=== PATIENT | female | born 1980 | race Caucasian/White ===

== ENCOUNTER 2016-11-11 18:56 | Observation (INO) | payer OTHER ==
[2016-11-11] MEDS ORDERED: ACETAMINOPHEN 500 MG TAB PO ONE (19:24)
--- NOTE | 2016-11-11 19:44 | OBPROG ---
OBG Labor Progress Note Assessment/Plan: Assessment:awake alert answering questions several abrasion to left side, ankle, thigh palm and elbow denies leaking bleeding and cramping states feeling irregular movement at 20 weeks abdomen soft on palpation consult dr. Catherine koenig on POC doppler 129 Plan:KB type and screen doppler, hydrate, tylenol for pain relief, clean and bandage abrasions 11/11/16 19:44 11/11/16 19:47 11/11/16 19:47 Subjective: Denies leaking bleeding or cramping. States feeling fm irregularly at 20 weeks. Fell at 1730 running in the rain, chasing the kids. Fell toleft ankle 2 areas of abrasion. Left thigh 1 area of abrasion. Able to walk although sore pain of about a 5. Abrasion to left palm. Bruise to left elbow. PAtient states got up from lying postion from left side after the fall. Questioning impact to left side of abdomen. - Physical Exam General Appearance: WD/WN, alert, no apparent distress Respiratory: chest non-tender, lungs clear, normal breath sounds Cardiac/Chest: regular rate, rhythm Abdomen: normal bowel sounds Extremities: normal range of motion, Khang's sign (negative bilaterally) DTR- Lower Extremities: Knee (R): 1+, Knee (L): 1+ (no clonus) Skin: normal color, warm/dry Neuro/Psych: no motor/sensory deficits, alert, normal mood/affect, oriented x 3 ICD10 Worksheet Patient Problems: Problems Problem Status Onset (spontaneous vaginal delivery) Acute Diverticulitis large intestine Acute C. difficile diarrhea Acute 09/24/15
--- NOTE | 2016-11-11 20:10 | GHP ---
[f rep st] HISTORY AND PHYSICAL DATE OF ADMISSION: 11/11/2016 HISTORY OF PRESENT ILLNESS: The patient is a 36-year-old, 3, para 2, with an EDC of 017 which gives her a gestational age of 20 weeks, who comes in with complaint of falling in [place] She was running and she fell while she was running after her kids on 11/11/2016 at 17:30. Denie s feeling leaking, bleeding, cramping. States feeling positive movement although irregularly at 20 weeks. [facility] since early in her pregn lydia. Patient fell to her left side. She has 2 abrasions on her ankle, 1 abrasion on her left thig h, an abrasion on her left palm, a bruise on her left elbow and patient states that when she got up from the ground that she was totally laid out from her arm to her abdomen to her leg on the ground. MEDICAL HISTORY: Patient has a history of IBS, C diff after abdominal surgery and migraines. SURGICAL HISTORY: Colectomy in 09/2015. GYNECOLOGICAL HISTORY: Benign. PREVIOUS HISTORY: 3-year-old, 1-year-old, states no problems with deliveries and delivere d at term. FAMILY HISTORY: Noncontributory. SOCIAL HISTORY: Patient is . Two kids. Nonsmoker. Denies alcohol. Denies drug use. LABORATORY DATA: Patient is RPR nonreactive. Chlamydia is negative. HIV is negative. Gonorrhea i s negative. Hepatitis is negative. H pylori is negative. Rubella is immune. Patient's blood type is B negative. PHYSICAL ASSESSMENT: GENERAL: Patient is awake, alert, oriented x3. LUNGS: Clear bilaterally. A BDOMEN: Bowel sounds are positive in all 4 quadrants. EXTREMITIES: DTRs are 1+ bilaterally with n o clonus. Homans sign is negative bilaterally. On palpation, abdomen is soft. The patient denies contractions denies leaking, bleeding and any cramping. PLAN OF CARE: 1. Type and screen, Kleihauer Betke. 2. Doppler. 3. P.o. fluids and regular diet. 4. [facility]. 5. Cleaning and bandaging of abrasions after patient's fall. /[id number]/MODL
--- NOTE | 2016-11-11 21:34 | OBPROG ---
OBG Labor Progress Note Assessment/Plan: Assessment:awake alert answering questions several abrasion to left side, ankle, thigh palm and elbow denies leaking bleeding and cramping states feeling irregular movement at 20 weeks abdomen soft on palpation consult dr. Catherine koenig on POC doppler 129 round ligament pain kb negative Plan:Keep appt for tomorrow. pelvic rest until not sore, keep abrasions clean , return for laeking, bleeding, or cramping. Tylenol heat, ice, shower, rest x a few days, tub to assist with pain relief. verbalized understanding of all of the above 11/11/16 19:44 11/11/16 19:47 11/11/16 19:47 11/11/16 21:32 Objective: Patient ABO/Rh B NEGATIVE 11/11/16 19:35 Oxytocin Orders Assessment - Pre-Induction/Augmentation Assessment Gestational Age: 20 week(s) and 0 day(s) ICD10 Worksheet Patient Problems: Problems Problem Status Onset C. difficile diarrhea Acute 09/24/15 Diverticulitis large intestine Acute (spontaneous vaginal delivery) Acute
== END 2016-11-11 21:50 | disposition home or self-care (01) ==
LOC: FLD 18:56
PROVIDERS: ADMIT Advanced Practice Midwife; ATTEND Obstetrics & Gynecology
DX: O9A.212 Injury, poisoning and certain other consequences of external causes complicating pregnancy, second trimester (principal); S90.512A Abrasion, left ankle, initial encounter; S60.512A Abrasion of left hand, initial encounter; S70.312A Abrasion, left thigh, initial encounter; S50.02XA Contusion of left elbow, initial encounter; O09.522 Supervision of elderly multigravida, second trimester; W01.0XXA Fall on same level from slipping, tripping and stumbling without subsequent striking against object, initial encounter; Z3A.20 20 weeks gestation of pregnancy
CPT/HCPCS: G0378 ×2

== ENCOUNTER 2017-03-18 10:00 | Inpatient (IN) | payer OTHER ==
[2017-03-18] MEDS ORDERED: EPSOM SALT 454 GM TP PRN (10:59)
[2017-03-18] MEDS ORDERED: OLIVE OIL 118 ML BTL MISC PRN (10:59)
[2017-03-18] MEDS ORDERED: TERBUTALINE SULFATE 1 MG/ML VIAL IV PRN (10:59)
[2017-03-18] MEDS ORDERED: IBUPROFEN 600 MG TAB PO PRN ×2 (10:59→18:28)
[2017-03-18] MEDS ORDERED: LR 1,000 ML IV PRN (10:59)
[2017-03-18] MEDS ORDERED: OXYTOCIN 20 UNIT in LR 1,000 ML IV PRN (10:59)
[2017-03-18 11:35] LABS: % IMMATURE GRANULYOCYTES 0.6 % (0.0-1.1); ABSOLUTE IMMATURE GRANULOCYTES 0.06 10^3/uL (0.00-0.10); ADD DIFF? NO; ADD MORPH? NO; ADD SCAN? NO; ATYPICAL LYMPHOCYTE FLAG 0 (0-99); FRAGMENT RBC FLAG 0 (0-99); HEMATOCRIT 35.4 % (38.0-47.0); HEMOGLOBIN 12.7 g/dL (12.6-16.3); LEFT SHIFT FLG 0 (0-99); LIPEMIA HEMOLYSIS FLAG 90 (0-99); MEAN CELL HEMOGLOBIN CONCENTR. 35.9 g/dL (32.4-36.7); MEAN CELL VOLUME 80.8 fL (81.5-99.8); MEAN PLATELET VOLUME 10.2 fL (8.7-11.7); PLATELET CLUMPS FLAG 0 (0-99); PLATELET COUNT 263 10^3/uL (150-400); RED BLOOD CELL COUNT 4.38 10^6/uL (4.18-5.33); RED CELL DISTRIBUTION WIDTH 14.3 % (11.5-15.2)
[2017-03-18] MEDS ORDERED: LIDOCAINE 1% 300 MG/30 ML SDV ONE (12:00)
[2017-03-18] MEDS ORDERED: AMMONIA AROMATIC 1 EACH AMP IH ONE (12:00)
[2017-03-18] MEDS ORDERED: OLIVE OIL 118 ML BTL ONE (12:00)
[2017-03-18] MEDS ORDERED: TERBUTALINE SULFATE 1 MG/ML VIAL ONE (12:00)
[2017-03-18] MEDS ORDERED: OXYTOCIN 10 UNIT/ML VIAL ONE (12:01)
[2017-03-18] MEDS ORDERED: MISOPROSTOL 200 MCG TAB ONE (12:01)
[2017-03-18] MEDS: MISOPROSTOL 100 MCG TAB PO SCH ×2 (12:15→17:15)
--- NOTE | 2017-03-18 12:16 | GHP ---
[f rep st] HISTORY AND PHYSICAL DATE OF ADMISSION: 03/18/2017 ADMISSION DIAGNOSES: 1. Intrauterine at 38 weeks and 1 day. 2. Spontaneous rupture of membranes. HISTORY OF PRESENT ILLNESS: The patient is a 36-year-old 3, para 2-0-0- 2 at 38-1/7 weeks, with an estimated due date of 03/31/2017 by last menstrual period on 06/24/2016 and confirmed by first trimester ultrasound at 8 weeks. The patient presented to Labor and Delivery with a complaint of leakage of fluid at 2:30 this morning. Clear fluid noted. No vaginal bleeding or spotting. Some sporadic contractions. Nothing painful. Good movement noted. The patient had good care at [facility] and presented in her first trimester. The is complicated by advanced maternal age. Innatal screen and single AFP were negative. She is Rh-negative , so is her spouse. No RhoGAM given. On 20-week ultrasound, fetus was LGA with estimated weight 98th percentile. Followup ultrasound at 36 weeks was done with an estimated weight of 81st percentile, with normal fluid and grade 3 placenta. The patient did receive both Tdap and the flu vaccine during . She developed slight anemia of . GBS culture is negative. PAST OBSTETRICAL HISTORY: In September 2012, she had a viable male infant, at 39 weeks and 3 days, weighing 7 pounds 1 ounce, uncomplicated vaginal delivery. In July 2014, she delivered a viable female infant, 7 pounds 9 ounces, at 39 weeks and 5 days. She had a marginal cord insertion, but an uncomplicated vaginal delivery. GYNECOLOGIC HISTORY: Age of menarche 10 years. Cycles are every 26-29 days, lasting 6 days. LMP 06/24/2016. Positive test at home at the end of July. The patient has a history of 1 abnormal Pap smear about 15 years ago. No treatment and subsequent Pap smears have been negative. She had one done in this and normal. The patient denies a history of sexually transmitted diseases. History of OCP use. MEDICATIONS: vitamins and iron. ALLERGIES: No known drug allergies. MEDICAL HISTORY: The patient has a history of diverticulitis with colectomy in 2016 and migraine headaches. PAST SURGICAL HISTORY: Colectomy in 2016, wisdom teeth extraction at age 17, and colonoscopy in 2017. SOCIAL HISTORY: The patient is . She lives with her and their daughter and son. She is in kitchen design. Denies any alcohol, tobacco, or illicit drug use. REVIEW OF SYSTEMS: A 10-point review of system is negative. Pertinent positives noted in HPI. LABORATORY DATA: Pt is B neg, Antibody negative. RPR NR. Rubella immune. HBsAg neg. HIV neg. Trio screen neg in 2012. Pap, GC/CT cultures all negative. Innatal neg. H/H 11.2/31.2. One-hour GTT-80. GBS negative. PHYSICAL EXAMINATION: VITAL SIGNS: Stable. The patient is afebrile. Well- nourished, well-developed female. Alert and oriented x3. No apparent distress. CARDIOVASCULAR: Regular rate and rhythm. LUNGS: Clear to auscultation bilaterally. ABDOMEN: Gravid, soft, nontender. PELVIC: She is found to be fingertip, 25%, -2. Grossly ruptured. EXTREMITIES: Normal to inspection, without calf tenderness or edema. heart tones are Category 1 strip, with a baseline of 130 beats per minute. Positive accelerations. No decelerations. On toco, there are no contractions. Some uterine irritability noted. ASSESSMENT AND PLAN: The patient is a 36-year-old 3, para 2-0-0-2 at 38 and 1/7 weeks who presents with spontaneous rupture of membranes not in labor. 1. Admit to Labor and Delivery. 2. Will proceed with induction of labor. 3. Start with Cytotec 50 mcg orally and then Pitocin per protocol prn. 4. Group B streptococcus negative, no antibiotics needed. 5. The patient desires an epidural. /[id number]/MODL MTDD
--- NOTE | 2017-03-18 15:07 | OBPROG ---
Labor Progress Note Assessment/Plan: Assessment: 36 y/o @ 38 1/7 wks with SROM Plan: s/p Cytotec 50 mcg x 1 with regular ctx's FHTs - Cat II strip with intermittent late decels, strip now reassuring after resuscitation performed Nice cervical change on exam Pt is considering an epidural 03/18/17 15:10 Subjective/Intrapartum Course: 03/18/17 15:07 Pt is breathing through her ctx's and is considering an epidural. She is requesting an exam. Objective: 03/18/17 11:25 Patient ABO/Rh B NEGATIVE 03/18/17 11:25 - SVE Dilation (cm): 3 Effacement (%): 50 Station: -1 Membranes: SROM Amniotic Fluid Color: Clear - Contraction Pattern Assessment Current Contraction Pattern: Regular (q 5-6 min) - FHR Assessment Cazares FHR (bpm): 130 FHR Pattern Variability: Moderate FHR Category: 2 (intermittent late decels noted; strip now reassuring) Oxytocin Orders Assessment - Pre-Induction/Augmentation Assessment Gestational Age: 38 week(s) and 1 day(s) ICD10 Worksheet Patient Problems: Problems Problem Status Onset PROM (premature rupture of membranes) Acute PROM with onset of labor within 24 hours of rupture Acute - ICD10 Problem Qualifiers (1) PROM (premature rupture of membranes) (2) PROM with onset of labor within 24 hours of rupture
[2017-03-18] MEDS ORDERED: ONDANSETRON 4 MG/2 ML VIAL IVP PRN (15:15)
[2017-03-18] MEDS ORDERED: NALOXONE HCL 0.4 MG/ML INJ IVP PRN (15:15)
[2017-03-18] MEDS ORDERED: PHENYLEPHRINE HCL 100 MCG/ML SYR IVP PRN (15:15)
--- NOTE | 2017-03-18 15:17 | PDANEPAE ---
ANE Past Medical History - Cardiovascular History Hx Hypertension: No Hx Arrhythmias: No Hx Chest Pain: No Hx Coronary Artery / Peripheral Vascular Disease: No Hx CHF / Valvular Disease: No Hx Palpitations: No Cardiovascular History Comment: VERY SLIGHT HEART MURMUR - Pulmonary History Hx COPD: No Hx Asthma/Reactive Airway Disease: No Hx Recent Upper Respiratory Infection: No Hx Oxygen in Use at Home: No Hx Sleep Apnea: No - Neurologic History Hx Cerebrovascular Accident: No Hx Seizures: No Hx Dementia: No - Endocrine History Hx Diabetes: No - Renal History Hx Renal Disorders: No Renal History Comment: PREV KIDNEY STONE PASSED ON HER OWN 09/2014 - Liver History Hx Hepatic Disorders: No - Neurological & Psychiatric Hx Hx Neurological and Psychiatric Disorders: Yes Neurological / Psychiatric History Comment: INTERMITTENT MIGRAINES. MAYBE ONCE A MONTH. - Cancer History Hx Cancer: No - Congenital Disorder History Hx Congenital Disorders: No - GI History Hx Gastrointestinal Disorders: Yes Gastrointestinal History Comment: CHRONIC DIVERTICULITIS - Other Health History Other Health History: YOUNGEST CHILD NOW A YEAR OLD HAS NOT HAD MENSES SINCE UNTIL NOW 09/16/15. BREAST FEEDING. SWOLLEN LYMPH NODE BEHIND RT EAR. ECZEMA. CURRENTLY HAS AREA ON CHEST. RECENTLY HAD RINGWORM AND SHE IS NOW USING HIS CREME. IS CLEARING UP - Chronic Pain History Chronic Pain: Yes (GI) - Surgical History Prior Surgeries: NONE ANE Review of Systems Review of Systems: ANE Patient History - Allergies Allergies/Adverse Reactions: bananas Allergy (Uncoded 02/24/16 10:57) nuts Allergy (Uncoded 02/24/16 10:57) poppy seeds Allergy (Uncoded 02/24/16 10:57) - Home Medications Home Medications: IRON,CARBONYL [IRON] 1 tab PO DAILY 03/18/17 [Last Taken Unknown] Vit27&Calcium/Iron/FA [] 1 tab PO DAILY 03/18/17 [Last Taken Unknown] - Smoking Hx Smoking Status: Never smoked - Family Anes Hx Family Hx Anesthesia Complications: NEG ANE Labs/Vital Signs - Labs Result Diagrams: 03/18/17 11:25 - Vital Signs Height: 157.48 cm Weight: 57.606 kg ANE Physical Exam - Airway Mallampati Score: Class 2 Mouth exam: normal dental/mouth exam - ASA Status ASA Status: II ANE Anesthesia Plan Anesthesia Plan: epidural
[2017-03-18] MEDS ORDERED: fentaNYL 100 MCG/2 ML INJ ONE (15:20)
[2017-03-18] MEDS ORDERED: BUPIVACAINE IV SCH (15:30)
[2017-03-18] MEDS ORDERED: fentaNYL 2MCG/ML/BUP 0.1% RTU 100 ML EP SCH (15:30)
[2017-03-18] MEDS ORDERED: FENTANYL 2 MCG/ML IV SCH (15:30)
[2017-03-18] MEDS ORDERED: LR 500 ML IV SCH (15:30)
[2017-03-18] MEDS ORDERED: NARCOTIC DRIP BAG-TOTAL ALL TYPES IV PRN (15:32)
[2017-03-18] MEDS ORDERED: FENT2MCG/ML&BUP0.1% 1 EA, fentaNYL 200 MCG, BUPIVACAINE 0.5% 20 ML in NS 100 ML IV SCH (15:32)
--- NOTE | 2017-03-18 15:56 | POSTANESTH ---
Post Anesthetic Evaluation Cardiovascular Status: Normal, Stable Respiratory Status: Normal, Stable Level of Consciousness/Mental Status: Can Participate in Eval Pain Control: Adequate, Prn Tx Ordered Nausea/Vomiting Control: Adequate, Prn Tx Ordered Complications Possibly Related to Anesthesia: Other, See Comments (possible dural puncture. will monitor for signs/symptoms of PDPH)
[2017-03-18] MEDS ORDERED: FENTANYL 2 MCG/ML EP SCH (16:00)
[2017-03-18] MEDS ORDERED: BUPIVACAINE EP SCH (16:00)
--- NOTE | 2017-03-18 16:52 | OBPROG ---
Labor Progress Note Assessment/Plan: Assessment: 36 y/o @ 38 1/7 wks with SROM Plan: s/p Cytotec 50 mcg x 1 with regular ctx's s/p epidural, window on L side FHTs - Cat I strip 03/18/17 16:49 Subjective/Intrapartum Course: 03/18/17 15:07 Pt is breathing through her ctx's and is considering an epidural. She is requesting an exam. 03/18/17 16:50 Pt is s/p epidural, but feel pain in LLQ 03/18/17 16:51 Objective: 03/18/17 11:25 Patient ABO/Rh B NEGATIVE 03/18/17 11:25 - SVE Dilation (cm): 8 Effacement (%): 100 Station: +1 Membranes: SROM Amniotic Fluid Color: Clear - Contraction Pattern Assessment Current Contraction Pattern: Regular (q4-5 min) - FHR Assessment Cazares FHR (bpm): 130 FHR Pattern Variability: Moderate FHR Category: 1 Oxytocin Orders Assessment - Pre-Induction/Augmentation Assessment Gestational Age: 38 week(s) and 1 day(s) ICD10 Worksheet Patient Problems: Problems Problem Status Onset PROM (premature rupture of membranes) Acute PROM with onset of labor within 24 hours of rupture Acute - ICD10 Problem Qualifiers (1) PROM (premature rupture of membranes) (2) PROM with onset of labor within 24 hours of rupture
[2017-03-18] MEDS ORDERED: HYDROCORTISONE 0.5% CREAM TP PRN (18:27)
[2017-03-18] MEDS ORDERED: SIMETHICONE 80 MG TAB CHEW PO PRN (18:27)
[2017-03-18] MEDS ORDERED: HYDROCODONE/APAP 5/325 TAB PO PRN (18:27)
--- NOTE | 2017-03-18 18:31 | OBDEL ---
Info Type: Vaginal Presentation at Delivery: Vertex L&D Analgesia/Anesthesia Type: Epidural GBS+: No Intrapartum Medications: Generic Name Dose Route Start Last Admin Trade Name Freq PRN Reason Stop Dose Admin Misoprostol 50 mcg 03/18/17 11:45 03/18/17 17:15 Cytotec PO 09/14/17 11:44 Not Given Q4H NANCY Ondansetron HCl 4 mg 03/18/17 15:15 03/18/17 17:21 Zofran IVP 03/19/17 15:14 4 mg Q4HRS PRN Administration Nausea/Vomiting, Can't Take PO - Hospital Course Intrapartum: 03/18/17 15:07 Pt is breathing through her ctx's and is considering an epidural. She is requesting an exam. 03/18/17 16:50 Pt is s/p epidural, but feel pain in LLQ 03/18/17 16:51 Indications for Delivery: SROM Vaginal Delivery - Delivery Provider Delivery Physician/CNM: Ladonna Spaulding - Labor and Delivery Onset of Contractions Date: 03/18/17 Onset of Contractions Time: 10:00 Onset of Contractions Type: Induced Rupture of Membranes Date: 03/18/17 Rupture of Membranes Time: 02:30 Rupture of Membranes Type: Spontaneous Amniotic Fluid Color: Clear Dilation Complete Date: 03/18/17 Dilation Complete Time: 06:00 Placenta Delivery Date: 03/18/17 Placenta Delivery Time: 18:21 Total Hours of Labor: 8 Laceration: Other (Specify) (perineum intact) Vaginal Sponge Count Correct: Yes Vaginal Needle Count Correct: Yes Vaginal Sweep Performed: Yes EBL: 300 cc Delivery Events: None - Medications Labor Augmentation/Induction Methods Used: Misoprostol (x 1) Labor Augmentation/Induction Indication: Other (Specify) (SROM) [place] Data LILIAN: 03/31/17 Gestational Age: 38 week(s) and 1 day(s) Cazares Delivery Date: 03/18/17 Delivery Time: 18:17 Sex of : Male Score (1 Min): 8 Score (5 Min): 9 ICD10 Worksheet Patient Problems: Problems Problem Status Onset PROM with onset of labor within 24 hours of rupture Acute (spontaneous vaginal delivery) Acute - ICD10 Problem Qualifiers (1) PROM with onset of labor within 24 hours of rupture (2) (spontaneous vaginal delivery)
[2017-03-18] MEDS: ACETAMINOPHEN 500 MG TAB PO PRN (18:51)
--- NOTE | 2017-03-18 21:05 | PDANEPAE ---
ANE History of Present Illness 36 year old female (post-) requesting epidural blood patch. ANE Past Medical History - Cardiovascular History Hx Hypertension: No Hx Arrhythmias: No Hx Chest Pain: No Hx Coronary Artery / Peripheral Vascular Disease: No Hx CHF / Valvular Disease: No Hx Palpitations: No Cardiovascular History Comment: VERY SLIGHT HEART MURMUR - Pulmonary History Hx COPD: No Hx Asthma/Reactive Airway Disease: No Hx Recent Upper Respiratory Infection: No Hx Oxygen in Use at Home: No Hx Sleep Apnea: No - Neurologic History Hx Cerebrovascular Accident: No Hx Seizures: No Hx Dementia: No Neurologic History Comment: Positional headache following epidural placement. - Endocrine History Hx Diabetes: No - Renal History Hx Renal Disorders: No Renal History Comment: PREV KIDNEY STONE PASSED ON HER OWN 09/2014 - Liver History Hx Hepatic Disorders: No - Neurological & Psychiatric Hx Hx Neurological and Psychiatric Disorders: Yes Neurological / Psychiatric History Comment: INTERMITTENT MIGRAINES. MAYBE ONCE A MONTH. - Cancer History Hx Cancer: No - Congenital Disorder History Hx Congenital Disorders: No - GI History Hx Gastrointestinal Disorders: Yes Gastrointestinal History Comment: CHRONIC DIVERTICULITIS - Other Health History Other Health History: YOUNGEST CHILD NOW A YEAR OLD HAS NOT HAD MENSES SINCE UNTIL NOW 09/16/15. BREAST FEEDING. SWOLLEN LYMPH NODE BEHIND RT EAR. ECZEMA. CURRENTLY HAS AREA ON CHEST. RECENTLY HAD RINGWORM AND SHE IS NOW USING HIS CREME. IS CLEARING UP - Chronic Pain History Chronic Pain: Yes (GI) - Surgical History Prior Surgeries: NONE ANE Review of Systems Review of Systems: - Systems Neurological: Reports: headache ANE Patient History - Allergies Allergies/Adverse Reactions: bananas Allergy (Uncoded 02/24/16 10:57) nuts Allergy (Uncoded 02/24/16 10:57) poppy seeds Allergy (Uncoded 02/24/16 10:57) - Home Medications Home medications: home medication list seen and reviewed Home Medications: IRON,CARBONYL [IRON] 1 tab PO DAILY 03/18/17 [Last Taken Unknown] Vit27&Calcium/Iron/FA [] 1 tab PO DAILY 03/18/17 [Last Taken Unknown] - Anes Hx Anes Hx: no prior problems - Smoking Hx Smoking Status: Never smoked - Family Anes Hx Family Hx Anesthesia Complications: NEG ANE Labs/Vital Signs - Labs Result Diagrams: 03/18/17 11:25 - Vital Signs Height: 157.48 cm Weight: 57.606 kg ANE Physical Exam - Airway Neck exam: FROM Mallampati Score: Class 2 - Pulmonary Pulmonary: no respiratory distress - Cardiovascular Cardiovascular: regular rate and rhythym - ASA Status ASA Status: II ANE Anesthesia Plan Anesthesia Plan: epidural (Epidural blood patch) Urgent/Emergent Case: Anes eval completed preop but documented later for safe timely pt care
--- NOTE | 2017-03-18 21:05 | POSTANESTH ---
Post Anesthetic Evaluation Cardiovascular Status: Normal, Stable, Similar to Pre-Op Cond Respiratory Status: Normal, Stable, Similar to Pre-op Cond. Level of Consciousness/Mental Status: Can Participate in Eval, Alert and Oriented Pain Control: Adequate, Prn Tx Ordered Nausea/Vomiting Control: Adequate, Prn Tx Ordered Complications Possibly Related to Anesthesia: None Noted (Patient tolerated procedure (Epidural blood patch) well.)
[2017-03-18] MEDS ORDERED: KETOROLAC 15 MG/1 ML SDV IVP ONE (22:34)
[2017-03-18 23:41] VITALS: RESP 16
[2017-03-19] MEDS: MISOPROSTOL 100 MCG TAB PO SCH ×6 (01:15→22:35)
[2017-03-19] MEDS: ACETAMINOPHEN 500 MG TAB PO PRN ×2 (08:59→16:51)
[2017-03-19 09:08] VITALS: O2SAT 97
--- NOTE | 2017-03-19 12:32 | OBPP ---
Progress Note Assessment/Plan: Assessment: PPD 1 s/p severe PP LAROSE, possibly spinal LAROSE and had blood patch. LAROSE significantly better today. Plan: routine care 03/19/17 12:29 Subjective/ Course: 03/19/17 12:30 Pt doing much better today. Bld has lessened a bit. urinating fine. Latch is going ok. Mod cramps with latch - ok with tylenol Objective: 03/18/17 11:25 Patient ABO/Rh B NEGATIVE 03/18/17 11:25 Temp Pulse Resp BP Pulse Ox 35.7 C L 61 16 99/64 L 97 03/19/17 08:00 03/19/17 08:00 03/19/17 08:00 03/19/17 08:00 03/19/17 08:00 Uterine Position/Fundal Height: Umbilicus -1 Uterine Tone: Firm Physical Exam - Physical Exam Abdomen: non-tender, soft, other (FF at umb -1) Extremities: non-tender, pedal edema (none) Skin: normal color, warm/dry Neuro/Psych: alert, normal mood/affect
[2017-03-19] MEDS: DOCUSATE SODIUM 100 MG CAP PO PRN (16:51)
[2017-03-20] MEDS: ACETAMINOPHEN 500 MG TAB PO PRN ×2 (03:13→10:26)
[2017-03-20] MEDS: MISOPROSTOL 100 MCG TAB PO SCH (04:47)
[2017-03-20] MEDS: DOCUSATE SODIUM 100 MG CAP PO PRN (10:27)
[2017-03-20 10:38] VITALS: BP 98/55; PULSE 71; TEMP 97.8
--- NOTE | 2017-03-20 11:23 | OBPP ---
Progress Note Assessment/Plan: Assessment: 1) s/p PPD # 2 - pt is stable 2) s/p blood patch - LAROSE significantly improved 3) Rh negative - Rhogam eval Plan: Plan for d/c home today Instructions reviewed with pt No Rx given Cont PNV and irom Pelvic rest RTC in 4 and 6 weeks for pp visit 03/20/17 11:23 Subjective/ Course: 03/19/17 12:30 Pt doing much better today. Bld has lessened a bit. urinating fine. Latch is going ok. Mod cramps with latch - ok with tylenol 03/20/17 11:22 Pt seen and examined. States LAROSE is significantly improved, just some neck soreness. Mild cramping. Mod Lochia. BM x 1. BF without difficulty. Objective: 03/18/17 11:25 Patient ABO/Rh B NEGATIVE 03/18/17 11:25 Temp Pulse Resp BP Pulse Ox 36.6 C 71 16 98/55 L 97 03/20/17 08:00 03/20/17 08:00 03/20/17 08:00 03/20/17 08:00 03/19/17 08:00 Uterine Position/Fundal Height: Umbilicus -2 Uterine Tone: Firm Physical Exam - Physical Exam Respiratory: lungs clear, normal breath sounds Cardiac/Chest: regular rate, rhythm Abdomen: normal bowel sounds, non-tender, soft, flatus (+) Extremities: non-tender, normal inspection Skin: normal color, warm/dry Neuro/Psych: alert, normal mood/affect, oriented x 3
--- NOTE | 2017-03-20 11:24 | OBGCSDC ---
General Delivery Information - General Info : 3 Para: 3 Abortions: 0 Type: Vaginal L&D Analgesia/Anesthesia Type: Epidural Admission Date: 03/18/17 Labs: Patient ABO/Rh B NEGATIVE 03/18/17 11:25 Hct 35.4 % (38.0-47.0) L 03/18/17 11:25 - Hospital Course Intrapartum: 03/18/17 15:07 Pt is breathing through her ctx's and is considering an epidural. She is requesting an exam. 03/18/17 16:50 Pt is s/p epidural, but feel pain in LLQ 03/18/17 16:51 : 03/19/17 12:30 Pt doing much better today. Bld has lessened a bit. urinating fine. Latch is going ok. Mod cramps with latch - ok with tylenol 03/20/17 11:22 Pt seen and examined. States LAROSE is significantly improved, just some neck soreness. Mild cramping. Mod Lochia. BM x 1. BF without difficulty. Vaginal - Delivery Provider Delivery Physician/CNM: Ladonna Spaulding - Diagnosis Labor: Induced Rupture of Membranes Type: Spontaneous Amniotic Fluid Color: Clear Laceration: Other (Specify) (perineum intact) Delivery Events: None - Delivery EBL: 300 cc Data LILIAN: 03/31/17 Gestational Age: 38 week(s) and 3 day(s) Cazares Delivery Date: 03/18/17 Delivery Time: 18:17 Sex of Infant: Male Score (1 Min): 8 Score (5 Min): 9 Discharge Information - Discharge Information Condition: Good Instruction/Follow Up: Four Weeks, Six Weeks
== END 2017-03-20 12:25 | disposition home or self-care (01) | DRG 774 ==
LOC: FLD 10:00 → FOB 23:00
PROVIDERS: ADMIT Obstetrics & Gynecology; ATTEND Obstetrics & Gynecology
DX: O42.02 Full-term premature rupture of membranes, onset of labor within 24 hours of rupture (principal); O74.5 Spinal and epidural anesthesia-induced headache during labor and delivery; O26.893 Other specified pregnancy related conditions, third trimester; Z67.91 Unspecified blood type, Rh negative; Z3A.39 39 weeks gestation of pregnancy; Z37.0 Single live birth
CPT/HCPCS: J1885; J2370; J2405; J3010; J3105

== ENCOUNTER → 2018-02-15 | Outpatient (CLI) | payer OTHER ==
[~2018-02-15] MED LIST: IOPAMIDOL (ISOVUE-300) 100 ML BTL ONE
== END ==
LOC: FIMAGING 09:37
PROVIDERS: ATTEND Physician Assistant
DX: K56.41 Fecal impaction (principal); Z90.49 Acquired absence of other specified parts of digestive tract
CPT/HCPCS: Q9967